=== PATIENT | male | born 1940 | race Caucasian/White ===

== ENCOUNTER 2021-03-18 06:01 | Day surgery (SDC) | payer MEDICARE ==
[~2021-03-18 06:01] MED LIST: ALLERGY4 MG PO; KAPSPARGO SPRIN25 MG PO; LIPITOR20 M1 PO; PREDNISONE10 MG PO; URSODIOL250 MG PO
[2021-03-18 09:12] VITALS: BP 162/72
== END 2021-03-18 09:45 | disposition home or self-care (01) ==
LOC: ORM 06:01
PROVIDERS: ATTEND Urology
PROC: 0TF3XZZ Fragmentation in Right Kidney Pelvis, External Approach (ICD-10-PCS; principal; 2021-03-18)
PROC: 0TBB8ZX Excision of Bladder, Via Natural or Artificial Opening Endoscopic, Diagnostic (ICD-10-PCS; 2021-03-18)
DX: N20.0 Calculus of kidney (principal); N30.41 Irradiation cystitis with hematuria; N40.1 Benign prostatic hyperplasia with lower urinary tract symptoms; N13.8 Other obstructive and reflux uropathy; I10 Essential (primary) hypertension; I25.10 Atherosclerotic heart disease of native coronary artery without angina pectoris; E78.2 Mixed hyperlipidemia; K80.20 Calculus of gallbladder without cholecystitis without obstruction; Y84.2 Radiological procedure and radiotherapy as the cause of abnormal reaction of the patient, or of later complication, without mention of misadventure at the time of the procedure; Z85.46 Personal history of malignant neoplasm of prostate; Z85.51 Personal history of malignant neoplasm of bladder; Z87.891 Personal history of nicotine dependence; Z95.1 Presence of aortocoronary bypass graft; Z92.3 Personal history of irradiation
CPT/HCPCS: Q9967

== ENCOUNTER 2023-08-18 11:27 | Emergency (ER) | payer OTHER, MEDICARE ==
[~2023-08-18] VITALS: Ht 167.6 cm; Wt 65.0 kg
[2023-08-18] VITALS (16 sets, daily range): BP systolic 132–212; BP diastolic 64–119
[~2023-08-18 11:27] MED LIST changes: +CARAFATE PO; +MERCAPTOPUR50 MG PO; +OMEPRAZOLE DR40 MG
[2023-08-18 12:16] LABS: BASO% 1.3 % (0-3); EOS% 2.8 % (0-8); HEMATOCRIT 42.1 % (39.0-50.0); HEMOGLOBIN 14.7 g/dl (14.0-18.0); IMMATURE GRANULOCYTES 0.3 % (0.0-5.0); LYMPH% 12.8 % (15-41); MEAN CELL VOLUME 94.8 fL CALC (80.0-100.0); MEAN CORPUSCULAR HGB 33.1 pG CALC (26.0-32.0); MEAN CORPUSCULAR HGB CONC 34.9 g/dL CAL (32.0-36.0); MONO% 11.6 % (2-13); NEUT# 2.84 thou/uL (1.82-7.42); NEUT% 71.2 % (42-76); RED BLOOD COUNT 4.44 mill/uL (4.70-6.10); RED CELL DISTRI WIDTH 14.1 % (11.5-15.5)
[2023-08-18 12:39] LABS: ALBUMIN 4.1 g/dL (3.2-5.0); ALKALINE PHOSPHATASE 61 u/l (38-126); ANION GAP 11 (6-22 (CALC)); BUN 16 mg/dL (8-23); BUN/CREATININE RATIO 22 (12-20 (CALC)); CARBON DIOXIDE 24 mmol/l (22-30); CHLORIDE 109 mmol/l (95-108); CREATININE 0.7 mg/dL (0.7-1.3); GFR FOR AFR.AMER. > 60 ML/MIN (>=60 (CALC)); GFR OTHER RACES > 60 ML/MIN (>=60 (CALC)); POTASSIUM 4.3 mmol/l (3.5-5.1); SGOT/AST 66 u/l (19-48); SODIUM 140 mmol/l (137-146); TOTAL PROTEIN 7.7 g/dL (6.3-8.2)
[2023-08-18 12:40] LABS: BILIRUBIN, TOTAL 1.1 mg/dL (0.2-1.3)
[2023-08-18 14:58] LABS: URINE BILIRUBIN - DIPSTICK Negative (NEGATIVE); URINE BLOOD DIPSTICK Negative (NEGATIVE); URINE CLARITY Clear; URINE GLUCOSE - DIPSTICK Negative (NEGATIVE); URINE KETONE Negative (NEGATIVE); URINE LEUK ESTERASE Negative (Negative); URINE NITRITE - DIPSTICK Negative (Negative); URINE PROTEIN - DIPSTICK Negative (NEG-TRACE); URINE SPECIFIC GRAVITY 1.015; URINE UROBILINOGEN - DIPSTICK 0.2 E.U./dL (0.2)
[2023-08-18 15:02] LABS: URINE COLOR Yellow
[2023-08-18] MEDS ORDERED: TORADOL PO (15:22)
== END 2023-08-18 15:57 | disposition home or self-care (01) | DRG 204 ==
LOC: ED 11:27
PROVIDERS: Emergency Medicine
DX: R07.81 Pleurodynia (principal); R51.9 Headache, unspecified; I10 Essential (primary) hypertension; K72.10 Chronic hepatic failure without coma; V49.50XA Passenger injured in collision with unspecified motor vehicles in traffic accident, initial encounter; Z95.1 Presence of aortocoronary bypass graft

== ENCOUNTER 2023-08-22 11:25 | Emergency (ER) | payer OTHER, MEDICARE ==
[~2023-08-22] VITALS: Ht 167.6 cm; Wt 64.0 kg
[2023-08-22] VITALS (12 sets, daily range): BP systolic 136–161; BP diastolic 61–73
[~2023-08-22 11:25] MED LIST changes: +TORADOL PO
[2023-08-22 13:45] LABS: HEMATOCRIT 39.9 % (39.0-50.0); HEMOGLOBIN 13.8 g/dl (14.0-18.0); IMMATURE GRANULOCYTES 0.2 % (0.0-5.0); LYMPH% 12.8 % (15-41); MEAN CELL VOLUME 95.5 fL CALC (80.0-100.0); MEAN CORPUSCULAR HGB CONC 34.6 g/dL CAL (32.0-36.0); MONO% 14.7 % (2-13); NEUT# 3.21 thou/uL (1.82-7.42); NEUT% 67.3 % (42-76); RED BLOOD COUNT 4.18 mill/uL (4.70-6.10); RED CELL DISTRI WIDTH 14.3 % (11.5-15.5)
[2023-08-22 13:56] LABS: ALBUMIN 4.1 g/dL (3.2-5.0); ALKALINE PHOSPHATASE 58 u/l (38-126); ANION GAP 11 (6-22 (CALC)); BUN 13 mg/dL (8-23); BUN/CREATININE RATIO 20 (12-20 (CALC)); CARBON DIOXIDE 25 mmol/l (22-30); CHLORIDE 108 mmol/l (95-108); CREATININE 0.6 mg/dL (0.7-1.3); GFR FOR AFR.AMER. > 60 ML/MIN (>=60 (CALC)); GFR OTHER RACES > 60 ML/MIN (>=60 (CALC)); POTASSIUM 4.4 mmol/l (3.5-5.1); SGOT/AST 57 u/l (19-48); SODIUM 140 mmol/l (137-146); TOTAL PROTEIN 7.9 g/dL (6.3-8.2)
[2023-08-22 16:32] LABS: URINE BILIRUBIN - DIPSTICK Negative (NEGATIVE); URINE BLOOD DIPSTICK Trace-intact (NEGATIVE); URINE CLARITY Clear; URINE GLUCOSE - DIPSTICK Negative (NEGATIVE); URINE KETONE Negative (NEGATIVE); URINE LEUK ESTERASE Negative (Negative); URINE NITRITE - DIPSTICK Negative (Negative); URINE PROTEIN - DIPSTICK Negative (NEG-TRACE); URINE SPECIFIC GRAVITY 1.015; URINE UROBILINOGEN - DIPSTICK 0.2 E.U./dL (0.2)
[2023-08-22 16:33] LABS: URINE COLOR Yellow
== END 2023-08-22 16:48 | disposition home or self-care (01) | DRG 605 ==
LOC: ED 11:25
PROVIDERS: Nurse Practitioner
DX: S30.1XXA Contusion of abdominal wall, initial encounter (principal); S20.212A Contusion of left front wall of thorax, initial encounter; S80.02XA Contusion of left knee, initial encounter; S80.01XA Contusion of right knee, initial encounter; I10 Essential (primary) hypertension; K72.10 Chronic hepatic failure without coma; V49.50XA Passenger injured in collision with unspecified motor vehicles in traffic accident, initial encounter; Z95.1 Presence of aortocoronary bypass graft
CPT/HCPCS: Q9967